=== PATIENT | male | born 1970 | race Caucasian/White ===

== ENCOUNTER 2019-01-06 13:08 | Emergency (ER) | payer OTHER ==
[~2019-01-06] VITALS: Ht 170.1 cm; Wt 83.9 kg
--- NOTE | ~2019-01-06 | EKG ---
[place], [place] ELECTROCARDIOGRAM REPORT NAME: ROSALEE MIRANDA UNIT #: [id number] ROOM: DOCTOR: EPIPHANY DRAFT REPORT BIRTHDATE: [birth year] [facility] Test Date: 2019-01-06 Test Time: 14:05:52 Pat Name: ROSALEE MIRANDA Department: ER Room: Gender: On Site Manager: Jo Ann Arellano : 1970 Requested By: LINDY DE LA TORRE DNP Order Number: [id number] Reading MD: Jonatan Espinoza MD Measurements Intervals [place] Rate: 85 P: 23 MS: 136 QRS: -13 QRSD: 90 T: 3 QT: 369 QTc: 439 Interpretive Statements Sinus rhythm Normal ECG Electronically Signed On 01-20-2019 3:29:41 PDT by Jonatan Espinoza MD CM:EKGRPT:ELECTROCARDIOGRAM REPORT [id number] LINDY DE LA TORRE DNP EPIPHANY DRAFT REPORT LINDY DE LA TORRE DNP
[~2019-01-06 13:08] MED LIST: ANAPROX DS550 MG PO
[2019-01-06 14:03] LABS: BASO % 0.3 % (0.0-1.0); EOS # 0.1 10*3/uL (0.0-0.4); EOS % 0.6 % (1.0-4.0); HEMATOCRIT 41.6 % (42.0-52.0); HEMOGLOBIN 13.9 g/dl (14.0-18.0); LYMPH # 1.1 10*3/uL (1.3-4.4); LYMPH % 9.5 % (27.0-41.0); MEAN CELL VOLUME 94.1 fl (80.0-94.0); MEAN CORPUSCULAR HGB 31.4 pg (27.0-31.0); MEAN CORPUSCULAR HGB CONC 33.4 g/dl (33.0-37.0); MEAN PLATELET VOLUME 9.7 fl (9.6-12.3); MONO # 0.5 10*3/uL (0.1-1.0); MONO % 4.7 % (3.0-9.0); NEUT # 9.7 10*3/uL (2.3-7.9); NEUT % 84.4 % (47.0-73.0); PLATELET COUNT AUTOMATED 274 10*3/uL (130-400); RED BLOOD COUNT 4.42 10*6/uL (4.50-5.90); RED CELL DISTRI WIDTH 13.5 % (0-14.5); WHITE BLOOD COUNT 11.5 10*3/uL (4.8-10.8)
[2019-01-06 14:16] LABS: ACT PARTIAL THROMBO TIME 30.9 SECONDS (20.0-32.1); INTERNATIONAL NORM RATIO 0.9 (2.0-3.5)
[2019-01-06 14:19] LABS: ALBUMIN 3.1 gm/dl (3.1-4.5); ALKALINE PHOSPHATASE 134 U/L (45-117); BUN 6 mg/dl (7-24); CHLORIDE 103 mmol/L (98-107); LIPASE 250 U/L (73-393); SGOT/AST 71 IU/L (3-35); SGPT/ALT 140 U/L (12-78); SODIUM 138 mmol/L (136-145); TOTAL PROTEIN 7.9 gm/dL (6.4-8.2)
[2019-01-06 14:21] LABS: CPK 59 U/L (39-308); TROPONIN I < 0.015 ng/ml (<0.045)
[2019-01-06 14:24] LABS: CKMB < 1.0 ng/ml (0.5-3.6)
[2019-01-06 14:27] LABS: PHOSPHOROUS 3.2 mg/dL (2.5-4.9); THYROID STIM HORMONE (HS) 0.817 uIU/ml (0.358-4.75)
[2019-01-06 15:07] LABS: BILIRUBIN NEGATIVE (NEGATIVE); BLOOD 1+ (NEGATIVE); CLARITY CLEAR (CLEAR); COLOR YELLOW (YELLOW); GLUCOSE NEGATIVE (NEGATIVE); KETONE NEGATIVE (NEGATIVE); LEUKO ESTERASE NEGATIVE (NEGATIVE); NITRITE NEGATIVE (NEGATIVE); PH 7.5 (5.0-9.0); SPECIFIC GRAVITY <= 1.005 (1.005-1.030); UROBILINOGEN 0.2 E.U./dl (0.2-1.0)
[2019-01-06 15:13] LABS: BACTERIA TRACE; EPITHELIAL CELLS 0-2; WBC 0-2 wbc/hpf (0-5)
[2019-01-06 15:15] LABS: URINE AMPHETAMINES < 1000 (1000ng/ml); URINE BARBITURATES < 200 (200ng/ml); URINE BENZODIAZEPINES < 200 (200ng/ml); URINE CANNABINOIDS (THC) < 50 (50ng/ml); URINE COCAINE < 300 (300ng/ml); URINE METHADONE < 300 (300ng/ml); URINE OPIATES < 300 (300ng/ml)
[2019-01-06 15:16] LABS: URINE PHENCYCLIDINE < 25 (25ng/ml)
[2019-01-06] MEDS ORDERED: Tobrex Ophth S2.5 ML OPH (15:43)
[2019-01-12 13:05] LABS: IGG P18 AB Absent (.); IGG P23 AB Absent (.); IGG P28 AB Absent (.); IGG P30 AB Absent (.); IGG P39 AB Absent (.); IGG P41 AB Absent (.); IGG P45 AB Absent (.); IGG P58 AB Absent (.); IGG P63 AB Absent (.); IGG P66 AB Absent (.); IGM P23 AB Present (.); IGM P39 AB Present (.); IGM P41 AB Present (.); LYME IGG WB INTERPRETATION Negative (.); LYME IGM WB INTERPRETATION Positive (.)
== END 2019-01-06 15:57 | disposition home or self-care (01) ==
LOC: ED 13:08
PROVIDERS: Nurse Practitioner Family
DX: E86.0 Dehydration (principal); R25.2 Cramp and spasm; H53.8 Other visual disturbances; R63.0 Anorexia; G47.00 Insomnia, unspecified; R79.1 Abnormal coagulation profile; G43.909 Migraine, unspecified, not intractable, without status migrainosus

== ENCOUNTER → 2019-03-29 | Outpatient (CLI) | payer OTHER ==
[~2019-03-29] MED LIST changes: +Tobrex Ophth S2.5 ML OPH
[2019-03-29 14:33] LABS: HEMATOCRIT 46.8 % (42.0-52.0); HEMOGLOBIN 15.4 g/dl (14.0-18.0); MEAN CELL VOLUME 94.2 fl (80.0-94.0); MEAN CORPUSCULAR HGB CONC 32.9 g/dl (33.0-37.0); MEAN PLATELET VOLUME 10.6 fl (9.6-12.3); RED BLOOD COUNT 4.97 10*6/uL (4.50-5.90); RED CELL DISTRI WIDTH 13.8 % (0-14.5); WHITE BLOOD COUNT 5.7 10*3/uL (4.8-10.8)
[2019-03-29 14:45] LABS: ALBUMIN 3.8 gm/dl (3.1-4.5); ALKALINE PHOSPHATASE 55 U/L (45-117); BUN 9 mg/dl (7-24); CHLORIDE 107 mmol/L (98-107); CREATININE 0.98 mg/dL (0.70-1.30); POTASSIUM 4.1 mmol/L (3.5-5.1); SGOT/AST 20 IU/L (3-35); SGPT/ALT 33 U/L (12-78); SODIUM 140 mmol/L (136-145); TOTAL PROTEIN 7.6 gm/dL (6.4-8.2)
[2019-03-30 07:05] LABS: RHEUMATOID ARTHRITIS FACTOR <10.0 IU/mL (0.0-13.9)
== END | disposition home or self-care (01) ==
LOC: LAB 13:52
PROVIDERS: Family Medicine
DX: R53.83 Other fatigue (principal); M25.50 Pain in unspecified joint; A69.20 Lyme disease, unspecified